=== PATIENT | male | born 1995 | race African-American/Black ===

== ENCOUNTER 2017-01-25 05:20 | Emergency (ER) | payer OTHER ==
[~2017-01-25] VITALS: Ht 182.9 cm; Wt 80.5 kg
[2017-01-25 05:24] VITALS: Ht 182.9 cm; Wt 80.5 kg
--- NOTE | 2017-01-25 06:55 | ERD ---
ER Documentation Chief Complaint Date/Time DATE: 01/25/17 TIME: 06:50 Chief Complaint feeling sick (cant describe what he is feeling) feeling cold inside? HPI This is a 21-year-old male presenting to emergency department stating he "feels cold outside." Patient is a poor historian and speech is difficult to understand. Patient may be homeless. Patient states he is feeling cold and is here for relief. Patient also states he feels like he "has a cold." Patient denies need for medication. Patient is laying on gurney with sheath over his face. No fevers or chills. No cough, shortness breath or difficulty breathing. No chest pain. No drug or alcohol use. ROS All systems reviewed and are negative except as per history of present illness. Allergies Allergies: Coded Allergies: No Known Allergy (Unverified , 01/25/17) PMhx/Soc Medical and Surgical Hx: pt denies Medical Hx, pt denies Surgical Hx Hx Alcohol Use: No Hx Substance Use: No Hx Tobacco Use: Yes Smoking Status: Current some day smoker Physical Exam Vitals Vital Signs Date Time Temp Pulse Resp B/P Pulse Ox O2 Delivery O2 Flow Rate FiO2 01/25/17 05:24 97.3 54 20 120/75 98 Physical Exam Const: No acute distress, alert Head: Atraumatic Eyes: Normal Conjunctiva ENT: Normal External Ears, Nose and Mouth. Resp: No cough. breathing is unlabored. no wheezing. No labored breathing. Neur: Awake and alert Psych: flat affect Procedures/MDM MDM: This is a 21-year-old male presenting to emergency department for "feeling cold outside." Patient is a poor historian and difficult to understand. Denies need for medication. States he is here for relief of the cold. Vital signs are stable. Patient is afebrile. Patient appears in no acute distress. No labored breathing. No signs or symptoms of respiratory distress. No thorough history of exam done due to patient's stated chief complaint and patient's clinical picture. Low suspicion for pneumonia, pleural effusion, pneumothorax or acute NE. Differential diagnosis includes but not limited to URI, influenza, otitis media , otitis externa, asthma exacerbation, croup, bronchitis, bronchiolitis and costochondritis. Patient is appropriate for outpatient management. Instructed patient to follow- up with primary care provider in the next 2-3 days for reassessment and additional management. Resources provided. Return to ED for any high fever, chest pain, difficulty breathing, shortness breath, wheezing, vomiting, diarrhea , abdominal pain or any new or worsening symptoms. Patient verbalizes understanding. All questions answered at discharge. Patient discharged in compliance with [facility]'s treat and release policy. Disclaimer: Inadvertent spelling and grammatical errors are likely due to EHR/ dictation software use and do not reflect on the overall quality of patient care. Also, please note that the electronic time recorded on this note does not necessarily reflect the actual time of the patient encounter. Departure Diagnosis: Primary Impression: URI (upper respiratory infection) URI type: unspecified viral URI Qualified Code: J06.9 - Viral upper respiratory tract infection Condition: Stable Patient Instructions: Uri, Viral, No Abx (Adult) Referrals: [facility], [facility] YOU HAVE RECEIVED A MEDICAL SCREENING EXAM AND THE RESULTS INDICATE THAT YOU DO NOT HAVE A CONDITION THAT REQUIRES URGENT TREATMENT IN THE EMERGENCY DEPARTMENT. FURTHER EVALUATION AND TREATMENT OF YOUR CONDITION CAN WAIT UNTIL YOU ARE SEEN IN YOUR DOCTORS OFFICE WITHIN THE NEXT 1-2 DAYS. IT IS YOUR RESPONSIBILITY TO MAKE AN APPOINTMENT FOR FOLOW-UP CARE. IF YOU HAVE A PRIMARY DOCTOR --you should call your primary doctor and schedule an appointment IF YOU DO NOT HAVE A PRIMARY DOCTOR YOU CAN CALL OUR PHYSICIAN REFERRAL HOTLINE AT IF YOU CAN NOT AFFORD TO SEE A PHYSICIAN YOU CAN CHOSE FROM THE FOLLOWING [facility] [address] [facility]. [facility] [address] [facility]. [facility] [address] [facility] [facility] [address] [facility]. [facility] [address] [facility]. [facility]. [address] [facility] YOU HAVE RECEIVED A MEDICAL SCREENING EXAM AND THE RESULTS INDICATE THAT YOU DO NOT HAVE A CONDITION THAT REQUIRES URGENT TREATMENT IN THE EMERGENCY DEPARTMENT. FURTHER EVALUATION AND TREATMENT OF YOUR CONDITION CAN WAIT UNTIL YOU ARE SEEN IN YOUR DOCTORS OFFICE WITHIN THE NEXT 1-2 DAYS. IT IS YOUR RESPONSIBILITY TO MAKE AN APPOINTMENT FOR FOLOW-UP CARE. IF YOU HAVE A PRIMARY DOCTOR --you should call your primary doctor and schedule and appointment IF YOU DO NOT HAVE A PRIMARY DOCTOR YOU CAN CALL OUR PHYSICIAN REFERRAL HOTLINE AT . IF YOU CAN NOT AFFORD TO SEE A PHYSICIAN YOU CAN CHOSE FROM THE FOLLOWING [facility] INSTITUTIONS: [facility] [address] [place] [address] [facility] [address] [place] [address] [facility] + [facility] [address] [place] [address] Additional Instructions: Call your primary care doctor TOMORROW for an appointment during the next 2-3 days.See the doctor sooner or return here if your condition worsens before your appointment time. Return to ED for any high fever, chest pain, difficulty breathing, shortness breath, wheezing, vomiting, diarrhea, abdominal pain or any new or worsening symptoms. SHAGGY DU NP Jan 25, 2017 06:55
== END 2017-01-25 07:02 | disposition home or self-care (01) ==
LOC: FTE 05:20
DX: J06.9 Acute upper respiratory infection, unspecified (principal); F17.210 Nicotine dependence, cigarettes, uncomplicated
CPT/HCPCS: 99282

== ENCOUNTER 2017-01-26 23:51 | Emergency (ER) | payer OTHER ==
[~2017-01-26] VITALS: Ht 191.8 cm; Wt 95.5 kg
[2017-01-26 23:57] VITALS: Ht 191.8 cm; Wt 95.5 kg
[2017-01-27 01:28] LABS: ADD UMIC NO; UR ASCORBIC ACID NEGATIVE (NEGATIVE); UR BILIRUBIN (Dip) NEGATIVE (NEGATIVE); UR BLOOD (Dip) NEGATIVE (NEGATIVE); UR CLARITY CLEAR (CLEAR); UR COLOR YELLOW (YELLOW); UR GLUCOSE (Dip) NEGATIVE (NEGATIVE); UR KETONES (Dip) NEGATIVE (NEGATIVE); UR LEUKOCYTE ESTERASE (Dip) NEGATIVE Leu/ul (NEGATIVE); UR NITRITE (Dip) NEGATIVE (NEGATIVE); UR TOTAL PROTEIN (Dip) NEGATIVE (NEGATIVE); UR UROBILINOGEN (Dip) 1+ mg/dL (NEGATIVE)
[2017-01-27 01:29] LABS: BASOPHILS % 0.4 % (0.0-2.0); EOSINOPHILS # 0.1 10^3/ul (0.0-0.5); EOSINOPHILS % 1.5 % (0.0-7.0); HEMATOCRIT 42.5 % (42.0-52.0); HEMOGLOBIN 14.5 g/dl (14.0-18.0); LYMPHOCYTES % 40.8 % (18.0-55.0); MEAN CORPUSCULAR HEMOGLOBIN 29.2 pg (29.0-33.0); MEAN CORPUSCULAR HGB CONC 34.1 g/dl (32.0-37.0); MEAN CORPUSCULAR VOLUME 85.5 fl (72.0-104.0); MONOCYTE # 0.6 10^3/ul (0.3-0.9); MONOCYTES % 7.7 % (0.0-13.0); NEUTROPHIL # 3.6 10^3/ul (1.6-7.5); NEUTROPHILS % 49.5 % (30.0-74.0); PLATELET COUNT 359 10^3/UL (140-415); RED BLOOD COUNT 4.97 10^6/ul (4.70-6.10); RED CELL DISTRIBUTION WIDTH 12.1 % (11.5-14.5); WHITE BLOOD COUNT 7.3 10^3/ul (4.8-10.8)
[2017-01-27 01:51] LABS: ALANINE AMINOTRANSFERASE 29 IU/L (13-69); ALBUMIN 4.1 g/dl (3.3-4.9); ALBUMIN/GLOBULIN RATIO 1.41; ALKALINE PHOSPHATASE 69 IU/L (42-121); ANION GAP 15 (8-16); ASPARTATE AMINO TRANSFERASE 17 IU/L (15-46); BILIRUBIN,INDIRECT 0.1 mg/dl (0-1.1); BILIRUBIN,TOTAL 0.1 mg/dl (0.2-1.3); BLOOD UREA NITROGEN 8 mg/dl (7-20); CALCIUM 9.1 mg/dl (8.4-10.2); CARBON DIOXIDE 29 mmol/L (21-31); CHLORIDE 102 mmol/L (97-110); CREATININE 0.78 mg/dl (0.61-1.24); GLUCOSE 92 mg/dl (70-220); POTASSIUM 3.8 mmol/L (3.5-5.1); SODIUM 142 mmol/L (135-144)
[2017-01-27 01:56] LABS: ACETAMINOPHEN < 10.0 ug/ml (10.0-30.0)
[2017-01-27 01:57] LABS: BARBITURATES Negative (NEGATIVE); BENZODIAZEPINES Negative (NEGATIVE); CANNABINOIDS Positive (NEGATIVE); COCAINE Negative (NEGATIVE); OPIATES Negative (NEGATIVE)
[2017-01-27 01:57] LABS: ETHANOL < 10.0 mg/dl; SALICYLATE < 1.0 mg/dl (5.0-30.0)
--- NOTE | 2017-01-27 02:57 | ERA ---
ER Documentation Chief Complaint Date/Time DATE: 01/27/17 TIME: 02:55 Chief Complaint STATES "I FEEL LIKE SEEING A DR, I AM SEEING THINGS" +MARIJUANA HPI This is a 21-year-old male who is an extremely poor historian and presents to the ER for evaluation of auditory and visual hallucinations. The patient states that "I am seeing things". He is declining any further history. The patient will not see whether he is homicidal or suicidal at time. ROS All systems reviewed and are negative except as per history of present illness. Allergies Allergies: Coded Allergies: No Known Allergy (Unverified , 01/25/17) PMhx/Soc Medical and Surgical Hx: pt denies Surgical Hx Hx Psychiatric Problems: Yes ("mental problems") Hx Alcohol Use: Yes Hx Substance Use: No Hx Tobacco Use: Yes Smoking Status: Current every day smoker Physical Exam Vitals Vital Signs Date Time Temp Pulse Resp B/P Pulse Ox O2 Delivery O2 Flow Rate FiO2 01/26/17 23:57 98.0 86 16 116/70 100 Physical Exam Const: Disheveled appearance Head: Atraumatic Eyes: Normal Conjunctiva ENT: Normal External Ears, Nose and Mouth. Neck: Full range of motion..~ No meningismus. Resp: Clear to auscultation bilaterally Cardio: Regular rate and rhythm, no murmurs Abd: Soft, non tender, non distended. Normal bowel sounds Skin: No petechiae or rashes Back: No midline or flank tenderness Ext: No cyanosis, or edema Neur: Awake and alert Psych: Flat affect Result Diagram: 01/27/17 0118 01/27/17 0118 Results 24 hrs Laboratory Tests Test 01/27/17 01:04 01/27/17 01:18 Urine Color YELLOW Urine Clarity CLEAR Urine pH 5.0 Urine Specific [place] 1.020 Urine Ketones NEGATIVEmg/dL Urine Nitrite NEGATIVEmg/dL Urine Bilirubin NEGATIVEmg/dL Urine Urobilinogen 1+mg/dL Urine Leukocyte Esterase NEGATIVELeu/ul Urine Hemoglobin NEGATIVEmg/dL Urine Glucose NEGATIVEmg/dL Urine Total Protein NEGATIVEmg/dl Urine Opiates Screen Negative Urine Barbiturates Negative Urine Amphetamines Screen Negative Urine Benzodiazepines Screen Negative Urine Cocaine Screen Negative Urine Cannabinoids Positive White Blood Count 7.310^3/ul Red Blood Count 4.9710^6/ul Hemoglobin 14.5g/dl Hematocrit 42.5% Mean Corpuscular Volume 85.5fl Mean Corpuscular Hemoglobin 29.2pg Mean Corpuscular Hemoglobin Concent 34.1g/dl Red Cell Distribution Width 12.1% Platelet Count 35466^3/UL Mean Platelet Volume 9.0fl Neutrophils % 49.5% Lymphocytes % 40.8% Monocytes % 7.7% Eosinophils % 1.5% Basophils % 0.4% Nucleated Red Blood Cells % 0.0/100WBC Neutrophils # 3.610^3/ul Lymphocytes # 3.010^3/ul Monocytes # 0.610^3/ul Eosinophils # 0.110^3/ul Basophils # 0.010^3/ul Nucleated Red Blood Cells # 0.010^3/ul Sodium Level 142mmol/L Potassium Level 3.8mmol/L Chloride Level 102mmol/L Carbon Dioxide Level 29mmol/L Anion Gap 15 Blood Urea Nitrogen 8mg/dl Creatinine 0.78mg/dl Glucose Level 92mg/dl Calcium Level 9.1mg/dl Total Bilirubin 0.1mg/dl Direct Bilirubin 0.00mg/dl Indirect Bilirubin 0.1mg/dl Aspartate Amino Transf (AST/SGOT) 17IU/L Alanine Aminotransferase (ALT/SGPT) 29IU/L Alkaline Phosphatase 69IU/L Total Protein 7.0g/dl Albumin 4.1g/dl Globulin 2.90g/dl Albumin/Globulin Ratio 1.41 Salicylates Level < 1.0mg/dl Acetaminophen Level < 10.0ug/ml Ethyl Alcohol Level < 10.0mg/dl Procedures/MDM This 21-year-old presents to the ER for evaluation of auditory and visual hallucinations. He is a poor historian and I have looked up his previous medical records. He has not been seen in this emergency room for any psychiatric evaluation in the past. He was here yesterday for bronchitis and was discharged home. The patient presents today and when I evaluated him he did have a flat affect. He did state he was having visual hallucinations. The patient was not able to give a further history. The patient was medically cleared and tele-psych is places patient on a 50 150s hold for grave disability at this time. Smoking Cessation Therapy: Pt. was lectured for greater than 3 minutes on the health risks of continued smoking and the benefits of cessation. Departure Diagnosis: Primary Impression: Hallucinations Additional Impressions: Tobacco abuse Marijuana abuse Condition: Stable OSCAR RAMIREZ DO Jan 27, 2017 02:57
--- NOTE | 2017-01-27 03:15 | PSY ---
Date/Time of Note Date/Time of Note DATE: 01/27/17 TIME: 02:50 Psychiatric Subjective Eval Consent Pt consented to telemedicine: Yes Subjective Evaluation Patient location: emergency Chief Complaint: STATES "I FEEL LIKE SEEING A DR, I AM SEEING THINGS" + MARIJUANA Reason for consult: hallucination mother [phone] History of present illness patient is a 21 yo male homeless with unknown PPH but states that he has been admitted before to a psychiatric hospital , he comes stating that he needs to "get his mind clear" and that he is seeing things that are trying to hurt him, he denies aud. hallucination but seeing things that he cant describe, he states that he is not feeling depressed or anxious , when he talks he talks at the 3 rd person, he is at times illogical and disorganized, he denies feeling suicidal but states that he does not feel safe to be discharged, believes that people are trying to hurt him. denies any drug or alcohol abuse except THC, denies any si or hi, he has not been able to take care of himself. Past psychiatric history unknown but states that he has been admitted Hospitalization: yes Medical history Problems Medical Problems: (1) URI (upper respiratory infection) Status: Acute Allergies: Coded Allergies: No Known Allergy (Unverified , 01/25/17) Substance Abuse Substance abuse history: Yes (thc) Prior substance abuse treatmen: No Social History Marital status: single Level of education: 12th grade DPA/Conservatorship: No Occupation/Longterm: unemployed Psychiatric Objective Eval Review of Systems: Review of Systems: Not Applicable Physical Examination: Physical Examination: Applicable Sleep: Insomnia Appetite: Decreased Energy: Decreased Interest: Decreased Mental Status Examination: Appearance: Groomed Eye Contact: Good Psychomotor Activity: Normal Behavior: Guarded Speech: Disorganized AFFECT: Flat Mood: Irritable Though Process: Loose Thought Content: Hallucinations Suicidal: No Homicidal: No On 72 hour hold: No Orientation: x3 Cognition: Drowsy Insight: Impared Judgement: Impared Attention Span: Distractible Laboratory Results Laboratory Tests Test 01/27/17 01:04 01/27/17 01:18 Urine Color YELLOW Urine Clarity CLEAR Urine pH 5.0 Urine Specific [place] 1.020 Urine Ketones NEGATIVEmg/dL Urine Nitrite NEGATIVEmg/dL Urine Bilirubin NEGATIVEmg/dL Urine Urobilinogen 1+mg/dL Urine Leukocyte Esterase NEGATIVELeu/ul Urine Hemoglobin NEGATIVEmg/dL Urine Glucose NEGATIVEmg/dL Urine Total Protein NEGATIVEmg/dl Urine Opiates Screen Negative Urine Barbiturates Negative Urine Amphetamines Screen Negative Urine Benzodiazepines Screen Negative Urine Cocaine Screen Negative Urine Cannabinoids Positive White Blood Count 7.310^3/ul Red Blood Count 4.9710^6/ul Hemoglobin 14.5g/dl Hematocrit 42.5% Mean Corpuscular Volume 85.5fl Mean Corpuscular Hemoglobin 29.2pg Mean Corpuscular Hemoglobin Concent 34.1g/dl Red Cell Distribution Width 12.1% Platelet Count 67001^3/UL Mean Platelet Volume 9.0fl Neutrophils % 49.5% Lymphocytes % 40.8% Monocytes % 7.7% Eosinophils % 1.5% Basophils % 0.4% Nucleated Red Blood Cells % 0.0/100WBC Neutrophils # 3.610^3/ul Lymphocytes # 3.010^3/ul Monocytes # 0.610^3/ul Eosinophils # 0.110^3/ul Basophils # 0.010^3/ul Nucleated Red Blood Cells # 0.010^3/ul Sodium Level 142mmol/L Potassium Level 3.8mmol/L Chloride Level 102mmol/L Carbon Dioxide Level 29mmol/L Anion Gap 15 Blood Urea Nitrogen 8mg/dl Creatinine 0.78mg/dl Glucose Level 92mg/dl Calcium Level 9.1mg/dl Total Bilirubin 0.1mg/dl Direct Bilirubin 0.00mg/dl Indirect Bilirubin 0.1mg/dl Aspartate Amino Transf (AST/SGOT) 17IU/L Alanine Aminotransferase (ALT/SGPT) 29IU/L Alkaline Phosphatase 69IU/L Total Protein 7.0g/dl Albumin 4.1g/dl Globulin 2.90g/dl Albumin/Globulin Ratio 1.41 Salicylates Level < 1.0mg/dl Acetaminophen Level < 10.0ug/ml Ethyl Alcohol Level < 10.0mg/dl Assessment and Plan Assessment/Diagnosis [place] I: psychosis nos [place] II: deferred [place] III: as per record [place] IV: homeless [place] V: gaf 25 Recommendation/Plan Follow-up/Disposition Patient cannot be treated at a lower level of care today due to GRAVE DISABLITY including an inability to carry out basic transactions necessary for survival in these areas and as evidenced by these behaviors: - Unable to seek out Food, Unable to seek out Clothing, Unable to seek out Residential, Severe Financial Incompetence, Severe Failure to Adjust in the Community, Severe Incompetence in Regards to Health Self-Management - Patient is labile,intrusive and socially inappropriate with personal boundaries - Confused, disoriented and/or grossly unable to distinguish reality from illusion -Requires near constant monitoring to prevent inadvertent danger to self and others -No family members willing and able to care for patient in the community with this mental state 5150 Recommendation: ROHAN Fountain MD Jan 27, 2017 03:00
[2017-01-27 05:35] VITALS: TEMP 98.2
[2017-01-27 10:40] VITALS: BP 123/78; PULSE 73; RESP 17
== END 2017-01-27 11:20 | disposition home or self-care (01) ==
LOC: E/R 23:51
DX: R44.0 Auditory hallucinations (principal); R44.1 Visual hallucinations; F17.210 Nicotine dependence, cigarettes, uncomplicated; F12.10 Cannabis abuse, uncomplicated
CPT/HCPCS: 36415; 80053; 80306; 80307; 81003; 85025; 99283

== ENCOUNTER 2017-01-28 01:09 | Emergency (ER) | payer SELFPAY ==
[~2017-01-28] VITALS: Ht 190.5 cm; Wt 79.5 kg
[2017-01-28 01:26] VITALS: Ht 190.5 cm; Wt 79.5 kg
[2017-01-28 02:47] VITALS: BP 106/91; PULSE 52; RESP 19; TEMP 98.3
--- NOTE | 2017-01-28 03:06 | ERA ---
ER Documentation Chief Complaint Date/Time DATE: 01/28/17 TIME: 03:05 Chief Complaint Pt reports "I am so messed up everything hurts" Pt admits to getting high HPI The patient is a 21-year-old male, presenting to the ER because he does not feel well.. He is very uncooperative and does not want to cooperate with the history and physical. He was seen by telepsychiatrist yesterday and was put on 5150 hold. It was unknown how he was released from the ER yesterday Past Medical/surgical history/social history/review of system: Unable to obtain due to his condition ROS All systems reviewed and are negative except as per history of present illness. Allergies Allergies: Coded Allergies: No Known Allergy (Unverified , 01/25/17) PMhx/Soc Medical and Surgical Hx: pt denies Medical Hx, pt denies Surgical Hx Hx Psychiatric Problems: Yes ("mental problems") Hx Alcohol Use: Yes Hx Substance Use: No Hx Tobacco Use: Yes Smoking Status: Current every day smoker Physical Exam Vitals Vital Signs Date Time Temp Pulse Resp B/P Pulse Ox O2 Delivery O2 Flow Rate FiO2 01/28/17 02:47 98.3 52 19 106/91 100 Room Air 01/28/17 01:26 98.3 72 16 132/66 98 Physical Exam Const: No acute distress. Head: Atraumatic. Eyes: Normal Conjunctiva. ENT: Normal External Ears, Nose and Mouth. Neck: Full range of motion. No meningismus. Resp: Clear to auscultation bilaterally. Cardio: Regular rate and rhythm. Abd: Soft, non distended, normal bowel sounds, non tender. Skin: No petechiae or rashes. Back: No midline or flank tenderness. Ext: No cyanosis, or edema. Neur: Limited due to his condition Psych: Unable to obtain due to his condition. Result Diagram: 01/28/17 03301/28/17 033 Results 24 hrs Laboratory Tests Test 01/28/17 03:30 White Blood Count 7.110^3/ul Red Blood Count 5.0910^6/ul Hemoglobin 14.6g/dl Hematocrit 43.9% Mean Corpuscular Volume 86.2fl Mean Corpuscular Hemoglobin 28.7pg Mean Corpuscular Hemoglobin Concent 33.3g/dl Red Cell Distribution Width 11.9% Platelet Count 48753^3/UL Mean Platelet Volume 9.0fl Neutrophils % 53.0% Lymphocytes % 37.6% Monocytes % 7.0% Eosinophils % 1.7% Basophils % 0.6% Nucleated Red Blood Cells % 0.0/100WBC Neutrophils # 3.810^3/ul Lymphocytes # 2.710^3/ul Monocytes # 0.510^3/ul Eosinophils # 0.110^3/ul Basophils # 0.010^3/ul Nucleated Red Blood Cells # 0.010^3/ul Sodium Level 142mmol/L Potassium Level 3.9mmol/L Chloride Level 103mmol/L Carbon Dioxide Level 31mmol/L Anion Gap 12 Blood Urea Nitrogen 6mg/dl Creatinine 0.74mg/dl Glucose Level 92mg/dl Calcium Level 9.2mg/dl Total Bilirubin 0.3mg/dl Direct Bilirubin 0.00mg/dl Indirect Bilirubin 0.3mg/dl Aspartate Amino Transf (AST/SGOT) 19IU/L Alanine Aminotransferase (ALT/SGPT) 33IU/L Alkaline Phosphatase 68IU/L Total Protein 7.0g/dl Albumin 4.0g/dl Globulin 3.00g/dl Albumin/Globulin Ratio 1.33 Salicylates Level < 1.0mg/dl Acetaminophen Level < 10.0ug/ml Ethyl Alcohol Level < 10.0mg/dl Procedures/MDM MEDICAL MAKING DECISION: the patient is a 21-year-old male, presenting with acute psychosis The differential diagnoses considered include but are not limited to psychosis, drug-induced psychosis, decompensated psychiatric illness Departure Diagnosis: Primary Impression: Psychosis Condition: Good Comments Consultation: The patient was evaluated by telepsychiatrist Dr Castillo who recommended discharging the patient I discussed the findings with the patient. I advised the patient to follow-up with the primary physician in about 1-2 days, sooner if needed and return if any concern. The patient's blood pressure was elevated (>120/80) but appears stable without evidence of hypertension emergency or urgency. The patient was counseled about the risks of hypertension and urged to pursue outpatient monitoring and therapy within a week with their primary care physician. JERROD BYERS MD Jan 28, 2017 03:06
[2017-01-28 04:00] LABS: BASOPHILS % 0.6 % (0.0-2.0); EOSINOPHILS # 0.1 10^3/ul (0.0-0.5); EOSINOPHILS % 1.7 % (0.0-7.0); HEMATOCRIT 43.9 % (42.0-52.0); HEMOGLOBIN 14.6 g/dl (14.0-18.0); LYMPHOCYTES # 2.7 10^3/ul (0.8-2.9); LYMPHOCYTES % 37.6 % (18.0-55.0); MEAN CORPUSCULAR HEMOGLOBIN 28.7 pg (29.0-33.0); MEAN CORPUSCULAR HGB CONC 33.3 g/dl (32.0-37.0); MEAN CORPUSCULAR VOLUME 86.2 fl (72.0-104.0); MONOCYTE # 0.5 10^3/ul (0.3-0.9); NEUTROPHIL # 3.8 10^3/ul (1.6-7.5); PLATELET COUNT 360 10^3/UL (140-415); RED BLOOD COUNT 5.09 10^6/ul (4.70-6.10); RED CELL DISTRIBUTION WIDTH 11.9 % (11.5-14.5); WHITE BLOOD COUNT 7.1 10^3/ul (4.8-10.8)
[2017-01-28 04:07] LABS: ALANINE AMINOTRANSFERASE 33 IU/L (13-69); ALBUMIN/GLOBULIN RATIO 1.33; ALKALINE PHOSPHATASE 68 IU/L (42-121); ANION GAP 12 (8-16); ASPARTATE AMINO TRANSFERASE 19 IU/L (15-46); BILIRUBIN,INDIRECT 0.3 mg/dl (0-1.1); BILIRUBIN,TOTAL 0.3 mg/dl (0.2-1.3); BLOOD UREA NITROGEN 6 mg/dl (7-20); CALCIUM 9.2 mg/dl (8.4-10.2); CARBON DIOXIDE 31 mmol/L (21-31); CHLORIDE 103 mmol/L (97-110); CREATININE 0.74 mg/dl (0.61-1.24); GLUCOSE 92 mg/dl (70-220); POTASSIUM 3.9 mmol/L (3.5-5.1); SODIUM 142 mmol/L (135-144)
[2017-01-28 04:29] LABS: ACETAMINOPHEN < 10.0 ug/ml (10.0-30.0); ETHANOL < 10.0 mg/dl; SALICYLATE < 1.0 mg/dl (5.0-30.0)
--- NOTE | 2017-01-28 06:47 | PSY ---
Date/Time of Note Date/Time of Note DATE: 01/28/17 TIME: 06:37 Psychiatric Subjective Eval Consent Pt consented to telemedicine: Yes Subjective Evaluation Patient location: emergency Chief Complaint: Pt reports "I am so messed up everything hurts" Pt admits to getting high Reason for consult: "my bODY ACH" History of present illness patient is a 21yo male homeless with PPH Of anxiety and cannabis abuse who came to the ER because " all my body was aching , my legs , my harms and my head and i wanted to get checked. He states that he is homeless and used to live with his mother but thinks that he should be independant now. He denies feeling depressed, or anxious, denies any current manic or psychotic symptoms, denies feeling suicidal or homicidal, he is alert and oriented to time , place , person and situation. he wants to be discharged. he is calm and cooperative. Past psychiatric history past psychiatric admission yes past suicidal attemtp denies Hospitalization: yes Family History denies Medical history Problems Medical Problems: (1) Hallucinations Status: Acute (2) Marijuana abuse Status: Acute (3) Psychosis Status: Acute (4) Tobacco abuse Status: Acute (5) URI (upper respiratory infection) Status: Acute Allergies: Coded Allergies: No Known Allergy (Unverified , 01/25/17) Substance Abuse Substance abuse history: Yes (thc) Prior substance abuse treatmen: No Social History Marital status: single Level of education: hs DPA/Conservatorship: No Occupation/Chcf: unemployed Psychiatric Objective Eval Review of Systems: Review of Systems: Not Applicable Physical Examination: Physical Examination: Applicable Sleep: Insomnia Appetite: Adequate Energy: Adequate Interest: Adequate Mental Status Examination: Appearance: Disheveled Eye Contact: Poor Psychomotor Activity: Slow Behavior: Cooperative Speech: Soft, Slurred AFFECT: Flat Mood: Depressed Though Process: Linear Thought Content: Normal Suicidal: No Homicidal: No On 72 hour hold: No Orientation: x4 Cognition: Drowsy Insight: Intact Judgement: Intact Attention Span: Intact Laboratory Results Laboratory Tests Test 01/28/17 03:30 White Blood Count 7.110^3/ul Red Blood Count 5.0910^6/ul Hemoglobin 14.6g/dl Hematocrit 43.9% Mean Corpuscular Volume 86.2fl Mean Corpuscular Hemoglobin 28.7pg Mean Corpuscular Hemoglobin Concent 33.3g/dl Red Cell Distribution Width 11.9% Platelet Count 45310^3/UL Mean Platelet Volume 9.0fl Neutrophils % 53.0% Lymphocytes % 37.6% Monocytes % 7.0% Eosinophils % 1.7% Basophils % 0.6% Nucleated Red Blood Cells % 0.0/100WBC Neutrophils # 3.810^3/ul Lymphocytes # 2.710^3/ul Monocytes # 0.510^3/ul Eosinophils # 0.110^3/ul Basophils # 0.010^3/ul Nucleated Red Blood Cells # 0.010^3/ul Sodium Level 142mmol/L Potassium Level 3.9mmol/L Chloride Level 103mmol/L Carbon Dioxide Level 31mmol/L Anion Gap 12 Blood Urea Nitrogen 6mg/dl Creatinine 0.74mg/dl Glucose Level 92mg/dl Calcium Level 9.2mg/dl Total Bilirubin 0.3mg/dl Direct Bilirubin 0.00mg/dl Indirect Bilirubin 0.3mg/dl Aspartate Amino Transf (AST/SGOT) 19IU/L Alanine Aminotransferase (ALT/SGPT) 33IU/L Alkaline Phosphatase 68IU/L Total Protein 7.0g/dl Albumin 4.0g/dl Globulin 3.00g/dl Albumin/Globulin Ratio 1.33 Salicylates Level < 1.0mg/dl Acetaminophen Level < 10.0ug/ml Ethyl Alcohol Level < 10.0mg/dl Assessment and Plan Assessment/Diagnosis [place] I: cannabis abuse [place] II: deferred [place] III: as per record [place] IV: homeless [place] V: gaf 65 Recommendation/Plan Medication Management none Follow-up/Disposition In my opinion,for this patient, outpatient care is the least restrictive option. Based on available evidence, this condition CAN be safely treated at a lower level of care effective today. Patient is stable without clear and convincing evidence of imminent danger due to mental illness that requires acute inpatient psychiatric care as the least restrictive alternative. Please discharge patient with referral for follow up to a outpatient mental health clinic for psychotherapy and medication. ROHAN DELGADO MD Jan 28, 2017 06:47
== END 2017-01-28 07:08 | disposition home or self-care (01) ==
LOC: E/R 01:09
DX: F29 Unspecified psychosis not due to a substance or known physiological condition (principal)
CPT/HCPCS: 80053; 80306; 85025; 99284